=== PATIENT | female | born 1960 | race Caucasian/White ===

== ENCOUNTER 2017-09-04 16:08 | Emergency (ER) | payer MEDICARE, MEDICAID ==
[~2017-09-04] VITALS: Ht 167.6 cm; Wt 77.0 kg
[~2017-09-04 16:08] MED LIST: ALBU6.7H INH; ANTI10DR6 EACH EAR; BENZ1LOZ30; BIOT1TAB8 PO; CHOL100010 PO; EST1T PO; HYDR2TAB28 PO; LEVO100T46 PO; LIOT25TA6 PO; METH4TAB3 PO; ONDA4TAB6 PO; PHEN30SP9 PO; PRED10TA PO; PROM25TA14 PO; PROP10TA10 PO; PROP60TA19 PO; PROTANDUM; RIVA20TA PO; VITA200T6 PO
[2017-09-04 16:14] VITALS: BP 115/95
== END 2017-09-04 16:41 | disposition home or self-care (01) ==
LOC: ER 16:09
DX: J20.9 Acute bronchitis, unspecified (principal); I10 Essential (primary) hypertension; I25.2 Old myocardial infarction; E11.9 Type 2 diabetes mellitus without complications; G89.29 Other chronic pain; Z90.710 Acquired absence of both cervix and uterus; Z88.5 Allergy status to narcotic agent; Z88.1 Allergy status to other antibiotic agents; Z79.899 Other long term (current) drug therapy
CPT/HCPCS: 93005; 99283

== ENCOUNTER 2018-01-26 13:37 | Emergency (ER) | payer MEDICARE, MEDICAID ==
[~2018-01-26] VITALS: Ht 167.6 cm; Wt 77.3 kg
[2018-01-26 14:12] LABS: BASOPHILS # (AUTO) 0.1 X10'3 (0-0.2); BASOPHILS % (AUTO) 0.9 % (0-1); EOSINOPHILS # (AUTO) 0.2 X10'3 (0-0.9); EOSINOPHILS % (AUTO) 2.9 % (0-6); HEMATOCRIT 42.1 % (35.0-45.0); HEMOGLOBIN 13.8 g/dl (12.0-16.0); LYMPHOCYTES # (AUTO) 2.3 X10'3 (1.1-4.8); LYMPHOCYTES % (AUTO) 30.8 % (21-51); MEAN CORPUSCULAR HEMOGLOBIN 27.1 PG (27.0-31.0); MEAN CORPUSCULAR HGB CONC 32.8 % (33.0-36.5); MEAN CORPUSCULAR VOLUME 82.6 FL (78-98); MEAN PLATELET VOLUME 7.5 FL (7.4-10.4); MONOCYTES # (AUTO) 0.5 X10'3 (0-0.9); MONOCYTES % (AUTO) 6.7 % (2-12); NEUTROPHILS # (AUTO) 4.5 X10'3 (1.8-7.7); NEUTROPHILS % (AUTO) 58.7 % (42-75); PLATELET COUNT 319 X10'3 (140-440); RED BLOOD COUNT 5.09 X10'6 (4.20-5.60); RED CELL DISTRIBUTION WIDTH 13.4 % (11.5-14.5); WHITE BLOOD COUNT 7.6 X10'3 (4.5-11.0)
[2018-01-26 14:22] LABS: INR 1.1 INR; PARTIAL THROMBOPLASTIN TIME 28 SECONDS (22-32); PROTHROMBIN TIME 11.1 SECONDS (9.0-12.0)
[2018-01-26 14:27] LABS: ALANINE AMINOTRANSFERASE 28 U/L (12-78); ALBUMIN 4.1 G/DL (3.4-5.0); ALKALINE PHOSPHATASE 110 IU/L (46-116); ANION GAP 8 (8-16); ASPARTATE AMINO TRANSFERASE 22 U/L (10-37); BILIRUBIN,TOTAL 0.4 MG/DL (0.1-1.0); BLOOD UREA NITROGEN 13 MG/DL (7-18); BUN/CREATININE RATIO 15.1 (6.6-38.0); CALCIUM 9.8 MG/DL (8.5-10.1); CHLORIDE 102 MMOL/L (99-107); CREATININE 0.86 MG/DL (0.40-0.90); GLUCOSE 103 MG/DL (70-104); SODIUM 138 MMOL/L (135-145); TOTAL CARBON DIOXIDE 27.7 MMOL/L (24-32); TOTAL PROTEIN 8.1 G/DL (6.4-8.2); eGFR 68 ML/MIN
[2018-01-26 15:05] VITALS: BP 141/80
[2018-01-26] MEDS ORDERED: mag hydrox/Alum hydrox/simeth 30ml oral suspension PO ONE (15:50)
[2018-01-26] MEDS ORDERED: LIDOcaine Viscous 15ml cup PO ONE (15:50)
== END 2018-01-26 16:19 | disposition home or self-care (01) ==
LOC: ER 13:38
DX: R07.89 Other chest pain (principal); K21.9 Gastro-esophageal reflux disease without esophagitis; F41.9 Anxiety disorder, unspecified; I10 Essential (primary) hypertension; I25.2 Old myocardial infarction; E11.9 Type 2 diabetes mellitus without complications; M19.90 Unspecified osteoarthritis, unspecified site; G89.29 Other chronic pain; Z90.710 Acquired absence of both cervix and uterus; Z98.890 Other specified postprocedural states; Z86.711 Personal history of pulmonary embolism; Z88.5 Allergy status to narcotic agent; Z88.6 Allergy status to analgesic agent; Z88.1 Allergy status to other antibiotic agents; Z79.899 Other long term (current) drug therapy
CPT/HCPCS: 36415; 71045; 80053; 84484; 85025; 85379; 85610; 85730; 93005; 99285

== ENCOUNTER 2018-03-13 17:25 | Emergency (ER) | payer MEDICARE, MEDICAID ==
[~2018-03-13] VITALS: Ht 167.6 cm; Wt 78.8 kg
[2018-03-13 17:35] VITALS: BP 144/73
== END 2018-03-13 19:29 | disposition home or self-care (01) ==
LOC: ER 18:38
DX: S93.401A Sprain of unspecified ligament of right ankle, initial encounter (principal); I10 Essential (primary) hypertension; E11.9 Type 2 diabetes mellitus without complications; G89.29 Other chronic pain; Z90.710 Acquired absence of both cervix and uterus; Z88.5 Allergy status to narcotic agent; Z88.1 Allergy status to other antibiotic agents; Z88.8 Allergy status to other drugs, medicaments and biological substances; Z79.899 Other long term (current) drug therapy; W19.XXXA Unspecified fall, initial encounter; Y93.89 Activity, other specified; Y92.090 Kitchen in other non-institutional residence as the place of occurrence of the external cause; Y99.8 Other external cause status
CPT/HCPCS: 73630; 99284

== ENCOUNTER 2019-04-25 14:54 | Emergency (ER) | payer MEDICARE, MEDICAID ==
[~2019-04-25] VITALS: Ht 167.6 cm; Wt 80.4 kg
[~2019-04-25 14:54] MED LIST changes: -ALBU6.7H INH; +ALBU6.7H9 INH
[2019-04-25 14:57] VITALS: BP 176/97
[2019-04-25] MEDS ORDERED: orphenadrine citrate 60mg/2ml inj. IM ONE (16:15)
[2019-04-25] MEDS ORDERED: METH-360 PO (16:46)
== END 2019-04-25 16:58 | disposition home or self-care (01) ==
LOC: ER 14:55
DX: S16.1XXA Strain of muscle, fascia and tendon at neck level, initial encounter (principal); G89.29 Other chronic pain; I10 Essential (primary) hypertension; I25.2 Old myocardial infarction; E11.9 Type 2 diabetes mellitus without complications; M19.90 Unspecified osteoarthritis, unspecified site; F10.99 Alcohol use, unspecified with unspecified alcohol-induced disorder; Z90.710 Acquired absence of both cervix and uterus; Z98.890 Other specified postprocedural states; Z86.711 Personal history of pulmonary embolism; Z88.5 Allergy status to narcotic agent; Z88.8 Allergy status to other drugs, medicaments and biological substances; Z79.899 Other long term (current) drug therapy; X50.1XXA Overexertion from prolonged static or awkward postures, initial encounter; Y93.89 Activity, other specified; Y92.89 Other specified places as the place of occurrence of the external cause; Y99.8 Other external cause status; Y90.9 Presence of alcohol in blood, level not specified
CPT/HCPCS: 72040; 96372; 99283; J2360

== ENCOUNTER 2019-07-31 12:17 | Emergency (ER) | payer MEDICARE, MEDICAID ==
[~2019-07-31] VITALS: Ht 167.6 cm; Wt 81.8 kg
[~2019-07-31 12:17] MED LIST changes: +METH-360 PO
[2019-07-31 12:34] VITALS: BP 125/68
[2019-07-31] MEDS ORDERED: LEVO500T2 PO (15:30)
[2019-07-31] MEDS ORDERED: METH4TAB81 PO (15:30)
[2019-07-31] MEDS ORDERED: ALBU6.7H9 INH (15:30)
== END 2019-07-31 15:39 | disposition home or self-care (01) ==
LOC: ER 12:17
DX: J20.9 Acute bronchitis, unspecified (principal); I10 Essential (primary) hypertension; I25.2 Old myocardial infarction; E11.9 Type 2 diabetes mellitus without complications; M19.90 Unspecified osteoarthritis, unspecified site; G89.29 Other chronic pain; Z86.711 Personal history of pulmonary embolism; Z98.890 Other specified postprocedural states; Z90.710 Acquired absence of both cervix and uterus; Z88.5 Allergy status to narcotic agent; Z88.1 Allergy status to other antibiotic agents; Z79.899 Other long term (current) drug therapy
CPT/HCPCS: 93005; 99283

== ENCOUNTER 2021-03-02 02:31 | Emergency (ER) | payer MEDICARE, MEDICAID ==
[~2021-03-02] VITALS: Ht 167.6 cm; Wt 81.8 kg
[~2021-03-02 02:31] MED LIST changes: +METH4TAB81 PO
[2021-03-02] MEDS ORDERED: HYDROcodone/acetaminophen 5mg/325mg tablet PO ONE (03:10)
[2021-03-02] MEDS ORDERED: ondansetron 4mg rapidly disintigrating tab PO ONE ×2 (03:10→03:20)
[2021-03-02] MEDS ORDERED: ONDA4TAB6 PO (03:20)
[2021-03-02] MEDS ORDERED: HYDR-3965 PO (03:20)
[2021-03-02 04:08] VITALS: BP 138/91
== END 2021-03-02 03:36 | disposition home or self-care (01) ==
LOC: ER 02:31
DX: M25.462 Effusion, left knee (principal); M25.561 Pain in right knee; I10 Essential (primary) hypertension; I25.2 Old myocardial infarction; E11.9 Type 2 diabetes mellitus without complications; M19.90 Unspecified osteoarthritis, unspecified site; G89.29 Other chronic pain; Z87.01 Personal history of pneumonia (recurrent); Z90.710 Acquired absence of both cervix and uterus; Z72.89 Other problems related to lifestyle; Z79.899 Other long term (current) drug therapy; Z88.8 Allergy status to other drugs, medicaments and biological substances
CPT/HCPCS: 29515; 73564; 99283; 99284

== ENCOUNTER 2021-03-06 21:09 | Emergency (ER) | payer MEDICARE, MEDICAID ==
[~2021-03-06] VITALS: Ht 167.6 cm; Wt 74.7 kg
[~2021-03-06 21:09] MED LIST changes: +HYDR-3965 PO
[2021-03-06 21:42] VITALS: BP 128/58
== END 2021-03-07 00:59 | disposition home or self-care (01) ==
LOC: ER 21:10
DX: M25.569 Pain in unspecified knee (principal); Z53.21 Procedure and treatment not carried out due to patient leaving prior to being seen by health care provider
CPT/HCPCS: 99281

== ENCOUNTER 2022-05-15 17:33 | Emergency (ER) | payer MEDICARE, MEDICAID ==
[~2022-05-15] VITALS: Ht 167.6 cm; Wt 77.3 kg
[~2022-05-15 17:33] MED LIST changes: +ALBU6.7H14 INH; -ALBU6.7H9 INH; -HYDR-3965 PO
[2022-05-15 18:59] LABS: CLARITY,URINE SLIGHTLY CLOUDY (Clear); COLOR,URINE YELLOW (Yellow); GLUCOSE, URINE NEGATIVE (Neg); KETONES,URINE NEGATIVE (Neg); LEUKOCYTE ESTERASE ,URINE NEGATIVE (Neg); NITRITES, URINE NEGATIVE (Neg); OCCULT BLOOD,URINE LARGE (Neg); PH,URINE 5.5 (4.8-8.0); PROTEIN,URINE TRACE mg/dl (Neg); UROBILINOGEN,URINE 0.2 E.U/dL (0.2-1.0)
[2022-05-15 19:00] LABS: UA COLLECTION TYPE VOIDED
[2022-05-15 19:11] LABS: BASOPHILS % (AUTO) 0.5 % (0-1); EOSINOPHILS # (AUTO) 0.3 X10'3 (0-0.9); EOSINOPHILS % (AUTO) 3.9 % (0-6); HEMATOCRIT 34.9 % (35.0-45.0); HEMOGLOBIN 11.4 g/dl (12.0-16.0); LYMPHOCYTES % (AUTO) 24.8 % (21-51); MEAN CORPUSCULAR HEMOGLOBIN 27.4 PG (27.0-31.0); MEAN CORPUSCULAR HGB CONC 32.7 g/dL (33.0-36.5); MEAN CORPUSCULAR VOLUME 83.8 FL (78-98); MEAN PLATELET VOLUME 7.4 FL (7.4-10.4); MONOCYTES # (AUTO) 0.8 X10'3 (0-0.9); MONOCYTES % (AUTO) 10.3 % (2-12); NEUTROPHILS # (AUTO) 4.9 X10'3 (1.8-7.7); NEUTROPHILS % (AUTO) 60.5 % (42-75); PLATELET COUNT 263 X10'3 (140-440); RED BLOOD COUNT 4.16 X10'6 (4.20-5.60); RED CELL DISTRIBUTION WIDTH 13.5 % (11.5-14.5); WHITE BLOOD COUNT 8.2 X10'3 (4.5-11.0)
[2022-05-15 19:17] LABS: BACTERIA,URINE NONE SEEN /HPF (Neg); MUCUS STRANDS NONE SEEN /LPF (Neg); SQUAMOUS EPITHELIAL CELL,UR FEW /LPF (FEW); WBC,URINE 0-4 /HPF (0-4)
[2022-05-15 19:18] LABS: RBC,URINE TNTC /HPF (0-2); YEAST FEW /HPF (NEGATIVE)
[2022-05-15 19:28] LABS: ALANINE AMINOTRANSFERASE 35 U/L (12-78); ALBUMIN/GLOBULIN RATIO 1.1 (1.1-1.5); ALKALINE PHOSPHATASE 72 IU/L (46-116); ANION GAP 9 (8-16); ASPARTATE AMINO TRANSFERASE 27 U/L (10-37); BILIRUBIN,TOTAL 0.5 MG/DL (0.1-1.0); BLOOD UREA NITROGEN 23 MG/DL (7-18); BUN/CREATININE RATIO 17.8 (6.6-38.0); CALCIUM 9.5 MG/DL (8.5-10.1); CHLORIDE 99 MMOL/L (99-107); CREATININE 1.29 MG/DL (0.40-0.90); GLUCOSE 98 MG/DL (70-104); LIPASE 150 U/L (73-393); POTASSIUM 3.8 MMOL/L (3.5-5.1); SODIUM 135 MMOL/L (135-145); TOTAL CARBON DIOXIDE 27.1 MMOL/L (24-32); TOTAL PROTEIN 7.8 G/DL (6.4-8.2); eGFR 42 ML/MIN
[2022-05-15] MEDS ORDERED: normal saline 1000ml 1,000 ML IV ONE (23:15)
[2022-05-15] MEDS ORDERED: acetaminophen 325mg tablet PO ONE (23:15)
[2022-05-15] MEDS ORDERED: ondansetron/PF 4mg/2ml inj IV ONE (23:15)
[2022-05-15] MEDS ORDERED: pantoprazole 40mg IV 80 MG in normal saline 100ml IV soln 100 ML IV ONE (23:15)
[2022-05-15] MEDS: pantoprazole 40MG/NS 100ML BAG 100 ML IV SCH (23:34)
[2022-05-16] MEDS ORDERED: iohexol 300mg/ml 100ml inj. ONE (00:14)
[2022-05-16] MEDS: pantoprazole 40MG/NS 100ML BAG 100 ML IV SCH ×2 (00:56→02:34)
[2022-05-16] MEDS: diatr meglu/diatrizoate 30ml oral sol.-(3 dose) bottle PO SCH ×3 (02:17→03:58)
[2022-05-16 09:16] VITALS: BP 135/87
== END 2022-05-16 09:18 | disposition home or self-care (01) ==
LOC: ER 17:35
DX: R31.9 Hematuria, unspecified (principal); R10.84 Generalized abdominal pain; I10 Essential (primary) hypertension; J44.9 Chronic obstructive pulmonary disease, unspecified; E11.9 Type 2 diabetes mellitus without complications; M19.90 Unspecified osteoarthritis, unspecified site; G89.29 Other chronic pain; M54.50 Low back pain, unspecified; Z88.5 Allergy status to narcotic agent; Z88.8 Allergy status to other drugs, medicaments and biological substances; Z91.041 Radiographic dye allergy status; Z90.710 Acquired absence of both cervix and uterus
CPT/HCPCS: 36415; 74177; 80053; 81001; 83690; 85025; 96365; 96366; 96375; 99285; C9113; J2405; J3490; J7030; Q9963; Q9967

== ENCOUNTER 2022-11-15 16:02 | Emergency (ER) | payer MEDICARE, MEDICAID ==
[~2022-11-15] VITALS: Ht 167.6 cm; Wt 81.8 kg
[2022-11-15 16:11] VITALS: BP 177/92
== END 2022-11-15 17:29 | disposition home or self-care (01) ==
LOC: ER 16:06
DX: S61.012A Laceration without foreign body of left thumb without damage to nail, initial encounter (principal); I11.9 Hypertensive heart disease without heart failure; J44.9 Chronic obstructive pulmonary disease, unspecified; E11.9 Type 2 diabetes mellitus without complications; Z90.49 Acquired absence of other specified parts of digestive tract; Z88.5 Allergy status to narcotic agent; Z88.1 Allergy status to other antibiotic agents; Z79.899 Other long term (current) drug therapy; Z79.1 Long term (current) use of non-steroidal anti-inflammatories (NSAID); Z79.2 Long term (current) use of antibiotics; X58.XXXA Exposure to other specified factors, initial encounter; Y93.89 Activity, other specified; Y92.89 Other specified places as the place of occurrence of the external cause; Y99.8 Other external cause status
CPT/HCPCS: 12001; 99282

== ENCOUNTER 2023-02-13 16:29 | Emergency (ER) | payer MEDICARE, MEDICAID ==
[~2023-02-13] VITALS: Ht 167.6 cm; Wt 77.3 kg
[2023-02-13 18:27] VITALS: BP 169/93; PULSE 58; RESP 16; TEMP 97.5; O2SAT 100
== END 2023-02-13 19:58 | disposition home or self-care (01) ==
LOC: ER 16:29
DX: S90.31XA Contusion of right foot, initial encounter (principal); I10 Essential (primary) hypertension; J44.9 Chronic obstructive pulmonary disease, unspecified; E11.9 Type 2 diabetes mellitus without complications; M19.90 Unspecified osteoarthritis, unspecified site; Z88.5 Allergy status to narcotic agent; Z88.8 Allergy status to other drugs, medicaments and biological substances; Z91.041 Radiographic dye allergy status; Z79.899 Other long term (current) drug therapy; Z90.710 Acquired absence of both cervix and uterus; X58.XXXA Exposure to other specified factors, initial encounter; Y93.89 Activity, other specified; Y92.89 Other specified places as the place of occurrence of the external cause; Y99.8 Other external cause status
CPT/HCPCS: 73630; 99283; L4360

== ENCOUNTER 2023-04-28 16:34 | Inpatient (IN) | payer MEDICARE, MEDICAID ==
[~2023-04-28] VITALS: Ht 167.6 cm; Wt 74.4 kg
[2023-04-28 16:59] LABS: BASOPHILS # (AUTO) 0.1 X10'3 (0-0.2); BASOPHILS % (AUTO) 1.1 % (0-1); EOSINOPHILS # (AUTO) 0.2 X10'3 (0-0.9); EOSINOPHILS % (AUTO) 3.6 % (0-6); HEMATOCRIT 36.8 % (35.0-45.0); HEMOGLOBIN 12.2 g/dl (12.0-16.0); LYMPHOCYTES # (AUTO) 1.7 X10'3 (1.1-4.8); LYMPHOCYTES % (AUTO) 27.1 % (21-51); MEAN CORPUSCULAR HEMOGLOBIN 28.6 PG (27.0-31.0); MEAN CORPUSCULAR HGB CONC 33.1 g/dL (33.0-36.5); MEAN CORPUSCULAR VOLUME 86.6 FL (78-98); MEAN PLATELET VOLUME 7.1 FL (7.4-10.4); MONOCYTES # (AUTO) 0.8 X10'3 (0-0.9); NEUTROPHILS # (AUTO) 3.6 X10'3 (1.8-7.7); NEUTROPHILS % (AUTO) 56.2 % (42-75); PLATELET COUNT 325 X10'3 (140-440); RED BLOOD COUNT 4.25 X10'6 (4.20-5.60); RED CELL DISTRIBUTION WIDTH 14.6 % (11.5-14.5); WHITE BLOOD COUNT 6.4 X10'3 (4.5-11.0)
[2023-04-28 17:18] LABS: ALANINE AMINOTRANSFERASE 21 U/L (12-78); ALBUMIN 4.2 G/DL (3.4-5.0); ALBUMIN/GLOBULIN RATIO 1.4 (1.1-1.5); ALKALINE PHOSPHATASE 51 IU/L (46-116); ANION GAP 9 (8-16); ASPARTATE AMINO TRANSFERASE 23 U/L (10-37); BILIRUBIN,TOTAL 0.5 MG/DL (0.1-1.0); BLOOD UREA NITROGEN 20 MG/DL (7-18); BUN/CREATININE RATIO 16.9 (10.0-20.0); CALCIUM 9.1 MG/DL (8.5-10.1); CHLORIDE 102 MMOL/L (99-107); CREATININE 1.18 MG/DL (0.40-0.90); GLUCOSE 86 MG/DL (70-104); POTASSIUM 4.2 MMOL/L (3.5-5.1); SODIUM 136 MMOL/L (135-145); TOTAL CARBON DIOXIDE 24.7 MMOL/L (24-32); TOTAL PROTEIN 7.1 G/DL (6.4-8.2); eCRCL 46 ML/MIN; eGFR 46 ML/MIN
[2023-04-28 17:25] LABS: PRO BRAIN NATRIURETIC PEPTIDE 82 PG/ML (0-125)
[2023-04-28 18:26] LABS: APTT 41 SECONDS (22-32); INR 1.4 INR
[2023-04-28] MEDS ORDERED: magnesium hydroxide 30ml (MOM) UD suspension PO PRN (20:05)
[2023-04-28] MEDS ORDERED: mag hydrox/Alum hydrox/simeth 30ml oral suspension PO PRN (20:05)
[2023-04-28] MEDS ORDERED: morphine 2 MG/ML inj. syringe IV PRN (20:05)
[2023-04-28] MEDS ORDERED: acetaminophen 325mg tablet PO PRN ×2 (20:05)
[2023-04-28 20:28] LABS: PRO BRAIN NATRIURETIC PEPTIDE 91 PG/ML (0-125)
--- NOTE | 2023-04-28 20:29 | NUR ---
PER MD IBARRA NO INTERROGATION DUE AT THIS TIME.
--- NOTE | 2023-04-29 01:31 | NUR ---
ATTEMPTED TO CALL REPORT TO PCU. RN WHO ANSWERED STATED THAT ROMAN RN TO RECIEVE REPORT, WAS BUSY. I COMMUNICATED THAT I WOULD CALL BACK IN 5 MINUTES, INDIVIDUAL WHO ANSWERED STATED THAT WOULD BE GOOD.
--- NOTE | 2023-04-29 02:35 | NUR ---
Pt admitted from ER for dizziness an chest pressure d/t pacemaker wire malfunctioning. Pt transported via gurney and ambulated to bed. Pt is A+Ox4, ad olamide activity, HH diet. Pt had pacemaker placed 5 days ago. site CDI with steri-strips, skin CDI. PIV 22G to the left hand saline locked. VSS.
[2023-04-29 02:50] VITALS: BP 153/69; PULSE 66; RESP 20; TEMP 97.6; O2SAT 98
[2023-04-29] MEDS: morphine 2 MG/ML inj. syringe IV PRN ×3 (03:35→14:44)
[2023-04-29] MEDS: ondansetron/PF 4mg/2ml inj IV PRN ×2 (03:35→09:51)
[2023-04-29 06:00] VITALS: BP 121/68; PULSE 62; RESP 14; TEMP 97.8; O2SAT 98
[2023-04-29] MEDS ORDERED: EZET10TA48 PO (06:04)
[2023-04-29] MEDS ORDERED: LISI5TAB22 PO (06:04)
[2023-04-29] MEDS ORDERED: INDLA60C PO (06:04)
[2023-04-29] MEDS ORDERED: BEMP180T PO (06:04)
[2023-04-29] MEDS ORDERED: ESCI20TA39 PO (06:04)
--- NOTE | 2023-04-29 06:12 | NUR ---
Problems reprioritized. Patient report given, questions answered & plan of care reviewed with Lorie VALDES. Pt stable at shift change.
--- NOTE | 2023-04-29 06:30 | NUR ---
Patient in room PCU 3011. I have received report from Amber VALDES and had the opportunity to ask questions and assume patient care.
[2023-04-29 07:05] LABS: BASOPHILS # (AUTO) 0.1 X10'3 (0-0.2); EOSINOPHILS # (AUTO) 0.2 X10'3 (0-0.9); EOSINOPHILS % (AUTO) 3.9 % (0-6); HEMATOCRIT 36.6 % (35.0-45.0); HEMOGLOBIN 12.1 g/dl (12.0-16.0); LYMPHOCYTES # (AUTO) 1.8 X10'3 (1.1-4.8); MEAN CORPUSCULAR VOLUME 87.9 FL (78-98); MONOCYTES # (AUTO) 0.8 X10'3 (0-0.9); MONOCYTES % (AUTO) 14.3 % (2-12); NEUTROPHILS # (AUTO) 2.7 X10'3 (1.8-7.7); NEUTROPHILS % (AUTO) 48.8 % (42-75); PLATELET COUNT 267 X10'3 (140-440); RED BLOOD COUNT 4.17 X10'6 (4.20-5.60); RED CELL DISTRIBUTION WIDTH 14.4 % (11.5-14.5); WHITE BLOOD COUNT 5.6 X10'3 (4.5-11.0)
[2023-04-29 07:41] LABS: ALBUMIN 3.7 G/DL (3.4-5.0); ANION GAP 10 (8-16); BLOOD UREA NITROGEN 24 MG/DL (7-18); BUN/CREATININE RATIO 21.4 (10.0-20.0); CALCIUM 8.9 MG/DL (8.5-10.1); CHLORIDE 103 MMOL/L (99-107); CREATININE 1.12 MG/DL (0.40-0.90); GLUCOSE 91 MG/DL (70-104); SODIUM 136 MMOL/L (135-145); TOTAL CARBON DIOXIDE 23.1 MMOL/L (24-32); eCRCL 49 ML/MIN; eGFR 49 ML/MIN
[2023-04-29 08:00] VITALS: BP_SYST 112; BP_SYST 115; BP_SYST 122; BP_DIAS 64; BP_DIAS 71; BP_DIAS 75; PULSE 60
[2023-04-29] MEDS ORDERED: cephalexin 500mg capsule PO SCH (08:00)
[2023-04-29] MEDS ORDERED: docusate sod 100mg capsule PO SCH (08:00)
[2023-04-29] MEDS ORDERED: levoTHYROXINE 100mcg tablet PO ONE (08:50)
[2023-04-29] MEDS ORDERED: ezetimibe 10mg tablet PO SCH (09:00)
[2023-04-29 09:51] VITALS: BP 110/63
[2023-04-29] MEDS ORDERED: lisinopril 5mg tablet PO SCH (10:00)
[2023-04-29 11:05] VITALS: BP 111/61; PULSE 69; RESP 18; TEMP 97.5; O2SAT 94
--- NOTE | 2023-04-29 12:47 | NUR ---
Message: [id number]. Vandana Haro. Is it okay for patient to eat lunch? Not sure if she's been evaluated by cardiology yet. Thank you. Lorie [phone] Custom Responses: promotional table spacer Transaction number: [id number]
--- NOTE | 2023-04-29 15:39 | NUR ---
Pt D/C per hospitalist. PIV removed, cannula intact. Tele discontinued. All belongings taken home by patient. Reviewed discharge instructions with patient and patient's spouse, all questions and concerns addressed. Pt was wheeled down to lobby by staff nuclear weapons officer and taken home by patient's spouse. Pt was stable and appropriate for discharge.
[2023-04-30] MEDS ORDERED: levoTHYROXINE 100mcg tablet PO SCH (07:00)
[2023-04-30] MEDS ORDERED: ESCITALOPRAM 10 mg tablet 10 MG TABLET PO SCH (08:00)
[2023-04-30] MEDS ORDERED: BEMPEDOIC ACID 180 MG PO SCH (08:00)
[2023-04-30] MEDS ORDERED: rivaroxaban 20mg tablet PO SCH (08:00)
== END 2023-04-29 15:39 | disposition home or self-care (01) | DRG 310 ==
LOC: ER 16:35 → ED HOLD 20:05 → PCU 3S 04-29 02:05
PROVIDERS: ADMIT Internal Medicine; ATTEND Family Medicine
DX: T82.120A Displacement of cardiac electrode, initial encounter (principal); J44.9 Chronic obstructive pulmonary disease, unspecified; E03.9 Hypothyroidism, unspecified; G89.29 Other chronic pain; M54.9 Dorsalgia, unspecified; Y83.8 Other surgical procedures as the cause of abnormal reaction of the patient, or of later complication, without mention of misadventure at the time of the procedure; E11.9 Type 2 diabetes mellitus without complications; I10 Essential (primary) hypertension; Z90.710 Acquired absence of both cervix and uterus; Z86.711 Personal history of pulmonary embolism; Z95.0 Presence of cardiac pacemaker; Z88.5 Allergy status to narcotic agent; Z88.8 Allergy status to other drugs, medicaments and biological substances; Z79.01 Long term (current) use of anticoagulants; Z79.899 Other long term (current) drug therapy; Y92.89 Other specified places as the place of occurrence of the external cause; I25.2 Old myocardial infarction
CPT/HCPCS: 36415; 70450; 71045; 80048; 80053; 83880; 84484; 85025; 85610; 85730; 87081; 99285; A4565; G0378; J2270; J2405

== ENCOUNTER 2024-01-17 13:44 | Emergency (ER) | payer MEDICARE, MEDICAID ==
[~2024-01-17] VITALS: Ht 167.6 cm; Wt 75.7 kg
[~2024-01-17 13:44] MED LIST changes: -ALBU6.7H14 INH; -ANTI10DR6 EACH EAR; +BEMP180T PO; -BENZ1LOZ30; -BIOT1TAB8 PO; -CHOL100010 PO; +ESCI20TA39 PO; -EST1T PO; +EZET10TA48 PO; -HYDR2TAB28 PO; +INDLA60C PO; -LIOT25TA6 PO; +LISI5TAB22 PO; -METH-360 PO; -METH4TAB3 PO; -METH4TAB81 PO; -ONDA4TAB6 PO; -PHEN30SP9 PO; -PRED10TA PO; -PROM25TA14 PO; -PROP10TA10 PO; -PROP60TA19 PO; -PROTANDUM; -VITA200T6 PO
[2024-01-17 13:56] VITALS: TEMP 99.9
[2024-01-17 16:38] LABS: STREP A SCREEN POSITIVE (Neg)
[2024-01-17] MEDS: dexamethasone sod phosphate 10mg/ml inj IM STA (17:21)
[2024-01-17] MEDS: acetaminophen 325mg/10.15ml oral unit dose solution PO ONE (17:22)
[2024-01-17] MEDS ORDERED: penicillin G benzathine 1.2 million unit/2ml syringe IM ONE (18:00)
[2024-01-17] MEDS ORDERED: ACET160S PO (18:26)
[2024-01-17] MEDS: PENICILLIN G BENZATHINE 2,400,000 UNIT/4 ML SYRINGE IM ONE (18:37)
[2024-01-17] MEDS: MESSAGE TO NURSING IM ONE (18:38)
[2024-01-17 19:01] VITALS: BP 121/63; PULSE 78; RESP 18; O2SAT 98
== END 2024-01-17 19:05 | disposition home or self-care (01) ==
LOC: ER 13:45
DX: J02.0 Streptococcal pharyngitis (principal); I10 Essential (primary) hypertension; I25.2 Old myocardial infarction; J44.9 Chronic obstructive pulmonary disease, unspecified; E11.9 Type 2 diabetes mellitus without complications; E07.9 Disorder of thyroid, unspecified; M19.90 Unspecified osteoarthritis, unspecified site; G89.29 Other chronic pain; M54.9 Dorsalgia, unspecified; Z90.710 Acquired absence of both cervix and uterus; Z98.890 Other specified postprocedural states; Z95.0 Presence of cardiac pacemaker; Z86.711 Personal history of pulmonary embolism; Z20.822 Contact with and (suspected) exposure to COVID-19; Z88.8 Allergy status to other drugs, medicaments and biological substances; Z88.1 Allergy status to other antibiotic agents; Z79.899 Other long term (current) drug therapy; Z79.1 Long term (current) use of non-steroidal anti-inflammatories (NSAID); Z72.89 Other problems related to lifestyle
CPT/HCPCS: 36415; 87811; 87880; 96372; 99284; J0561; J1100

== ENCOUNTER 2024-11-13 11:19 | Emergency (ER) | payer MEDICARE, MEDICAID ==
[~2024-11-13] VITALS: Ht 167.6 cm; Wt 76.0 kg
[2024-11-13 11:43] VITALS: BP 107/84; PULSE 66; RESP 18; O2SAT 98
--- NOTE | 2024-11-13 12:11 | RADIOLOGY REPORT ---
DI WRIST, COMPLETE (3VW MIN), INDICATION: WRIST PAIN TECHNICAL DATA: Frontal , oblique, and lateral views were obtained of the right wrist. COMPARISON: DI FOOT, COMPLETE (3VW MIN) on DOS: 02/13/23, FOOT, COMPLETE (3VW MIN) on DOS: 03/13/18 FINDINGS: Possible triquetral fracture on the lateral view. Joint spaces are maintained. Alignment is anatomic. Ulnar variance is positive. Soft tissues are within normal limits. IMPRESSION: Possible triquetral fracture on the lateral view.
--- NOTE | 2024-11-13 12:50 | Physician Documentation ---
History of Present Illness ~ Chief Complaint: Wrist pain Stated Complaint: FALL/WRIST PAIN Time Seen by MD: 12:19 Primary Medical Doctor: [facility] HPI 64-year-old female presents with a complaint of and left wrist pain. after falling yesterday. Stool had fallen over and she fell onto it with her right wrist injuring herself. Any head strike. Reports pain with range of motion of the right wrist Day of Onset: Nov 13, 2024 Tetanus within 5 years: Yes (NOVEMBER 2019) Medication Reconciliation Allergies: Coded Allergies: codeine (Unverified Allergy, Unknown, 11/13/24) diphenhydramine HCl (Verified Allergy, Unknown, 11/13/24) erythromycin base (Verified Allergy, Unknown, 11/13/24) hydrocodone (Unverified Allergy, Unknown, ITCHING AND DIZZINESS, 11/13/24) hydrocodone bit (Verified Allergy, Unknown, 11/13/24) prochlorperazine (Verified Allergy, Unknown, 11/13/24) prochlorperazine edisylate (Verified Allergy, Unknown, 06/29/16) prochlorperazine maleate (Verified Allergy, Unknown, 06/29/16) Scheduled Bempedoic Acid (Nexletol), 1 TAB PO DAILY, (Reported) Escitalopram Oxalate (Escitalopram Oxalate), 1 TAB PO DAILY, (Reported) Ezetimibe (Ezetimibe), 1 TAB PO DAILY, (Reported) Levothyroxine Sodium* (Levoxyl*), 100 MCG PO DAILY, (Reported) Lisinopril (Lisinopril), 1 TAB PO DAILY, (Reported) Propranolol HCl (Propranolol HCl), 1 CAP PO DAILY, (Reported) Rivaroxaban (Xarelto), 1 TAB PO DAILY, (Reported) Past Medical History Past Medical History: Hypertension, Myocardial Infarction, Mitral Valve Stenosis, COPD, Pulmonary Embolism, Diabetes, Thyroid (unspecified), Arthritis, Chronic Pain, Chronic Back Pain Past Surgical History: abdominal surgery, hysterectomy, orthopedic surgeries, pacemaker, other Alcohol Use: Occasionally Drug Use: none Lives with: Family Lives In: Home Review of Systems All Other Systems at this time: Reviewed and Negative ROS As stated above in the HPI, otherwise all systems are reviewed and negative. Physical Exam Vital Signs: Temperature: 97.5, Heart Rate: 66, Respiratory Rate: 18, BP: 107/84, Pulse Oximetry: 98, Weight: 75.950 Physical Exam General: Alert, no apparent distress. HEENT: PERRL, EOMI, no injection, moist mucous membranes. extremeties: Is notable for or swelling and end developing ecchymosis point tenderness to the lateral aspect of the posterior rest Neurologic: Oriented x4. Psychiatric: Normal mood and affect. Skin: Normal color, warm and dry. No edema, no ecchymosis. Progress Results/Orders Results/Orders Orders - KINGSTON GUADALUPE NP Wrist, Complete (3vw Min) (11/13/24 11:45) Ortho Orders (11/13/24 ) Completed Orders - KINGSTON GUADALUPE NP Wrist, Complete (3vw Min) (11/13/24 11:45) Hydrocodone/Apap 10/325 ([place] 10/325mg (11/13/24 13:25) Vital Signs 11/13/24 11:43 Temp 97.5 Pulse 66 Resp 18 B/P (MAP) 107/84 Pulse Ox 98 Medical Decision Making Findings Interpretation of patient's right rest x-ray there is notable fracture of the triquetrum did place her in a volar wrist splint and advised her to take a Tylenol and ibuprofen for pain and swelling Departure Disposition: 01 HOME / SELF CARE / HOMELESS Impression: Primary Impression: Wrist joint pain Additional Impression: Wrist fracture Condition: Stable Discharge Instructions: Wrist Fracture Treated With Immobilization Additional Instructions: You have a small wrist fracture which required splint placement. Follow up with the primary care to obtain a orthopedic referral if you continue to have troubles. Take ibuprofen and Tylenol Referrals: NO PRIMARY CARE PROVIDER (PCP) Education Educated: Patient Educated regarding: diagnosis Signature Scribe Signature: g Attestation: The note accurately reflects work and decisions made by me.Kingston Hernandez NP 11/13/24 13:32 KINGSTON GUADALUPE NP Nov 13, 2024 12:50
[2024-11-13] MEDS: HYDROcodone/acetaminophen 10/325mg tab PO ONE (13:40)
[2024-11-13 14:28] VITALS: TEMP 97.5
[2024-11-13] MEDS: acetaminophen 325mg tablet PO ONE (14:28)
== END 2024-11-13 14:30 | disposition home or self-care (01) ==
LOC: ER 11:20
DX: S62.101A Fracture of unspecified carpal bone, right wrist, initial encounter for closed fracture (principal); E11.9 Type 2 diabetes mellitus without complications; I10 Essential (primary) hypertension; I25.2 Old myocardial infarction; J44.9 Chronic obstructive pulmonary disease, unspecified; M19.90 Unspecified osteoarthritis, unspecified site; Z88.1 Allergy status to other antibiotic agents; Z86.711 Personal history of pulmonary embolism; Z88.5 Allergy status to narcotic agent; Z88.8 Allergy status to other drugs, medicaments and biological substances; Z90.710 Acquired absence of both cervix and uterus; Z95.0 Presence of cardiac pacemaker; W19.XXXA Unspecified fall, initial encounter; Y93.89 Activity, other specified; Y92.89 Other specified places as the place of occurrence of the external cause; Y99.8 Other external cause status
CPT/HCPCS: 29125; 73110; 99284; A4565; A6449

== ENCOUNTER 2025-03-24 12:19 | Emergency (ER) | payer MEDICARE, MEDICAID ==
[~2025-03-24] VITALS: Ht 167.6 cm; Wt 79.0 kg
[~2025-03-24 12:19] MED LIST changes: -EZET10TA48 PO; +EZET10TA80 PO
--- NOTE | 2025-03-24 12:44 | Physician Documentation ---
History of Present Illness ~ Chief Complaint: Ear Pain Stated Complaint: EAR PAIN Time Seen by MD: 12:29 OK to notify your PCP?: Yes Primary Medical Doctor: [facility] Source: patient Mode of Arrival: POV Exam Limitations: no limitations HPI 64-year-old female presents for bilateral ear pain and headache. She reports that the headache appeared yesterday and she does take atenolol for her blood pressure. She reports of the headache feels like a pressure sensation. She is not take her blood pressure at home on a regular basis but states that it has never been this high. Her left ear has been hurting for the past week and a couple of days ago her right ear started hurting. She denies any drainage out of the ear. She denies any fevers, chest pain, shortness of breath, nausea, vomiting, diarrhea or recent illness. She does have some sinus congestion as well. Medication Reconciliation Allergies: Coded Allergies: baclofen (Verified Allergy, Unknown, hallucinations, 03/24/25) codeine (Unverified Allergy, Unknown, 03/24/25) diphenhydramine HCl (Verified Allergy, Unknown, 03/24/25) erythromycin base (Verified Allergy, Unknown, 03/24/25) hydrocodone (Unverified Allergy, Unknown, ITCHING AND DIZZINESS, 03/24/25) hydrocodone bit (Verified Allergy, Unknown, 03/24/25) prochlorperazine (Verified Allergy, Unknown, 03/24/25) prochlorperazine edisylate (Verified Allergy, Unknown, 06/29/16) prochlorperazine maleate (Verified Allergy, Unknown, 06/29/16) Scheduled Bempedoic Acid (Nexletol), 1 TAB PO DAILY, (Reported) Escitalopram Oxalate (Escitalopram Oxalate), 1 TAB PO DAILY, (Reported) Ezetimibe (Ezetimibe), 1 TAB PO DAILY, (Reported) Levothyroxine Sodium* (Levoxyl*), 100 MCG PO DAILY, (Reported) Lisinopril (Lisinopril), 1 TAB PO DAILY, (Reported) Propranolol HCl (Propranolol HCl), 1 CAP PO DAILY, (Reported) Rivaroxaban (Xarelto), 1 TAB PO DAILY, (Reported) Past Medical History Past Medical History: Hypertension, Myocardial Infarction, Mitral Valve Steno sis, COPD, Pulmonary Embolism, Diabetes, Thyroid (unspecified), Arthritis, Chronic Pain, Chronic Back Pain Past Surgical History: abdominal surgery, hysterectomy, orthopedic surgeries, pacemaker, other Alcohol Use: Occasionally Drug Use: none Lives with: Family Lives In: Home Review of Systems All Other Systems at this time: Reviewed and Negative Physical Exam Vital Signs: RN Vital Signs have been reviewed: Yes, Temperature: 97.0, Source: Temporal, Heart Rate: 69, Respiratory Rate: 18, BP: 199/97, Pulse Oximetry: 98, Weight: 79.000 Oxygen Flow Rate: 0 Pulse Oximetry Reflects: adequate oxygenation Physical Exam General: Alert, no apparent distress. HEENT: PERRL, EOMI, no injection, moist mucous membranes. Bilateral ear canals clear. Bilateral TMs bulging with effusion but no infection. Sinuses nontender. Posterior pharynx clear. Neck: Full range of motion. Respiratory: Lungs clear, no respiratory distress. Chest: No accessory muscle use. Cardiovascular: Regular rate and rhythm, no murmurs. Gastrointestinal: Soft, nontender, nondistended. Bowels sounds present. Extremities: Normal range of motion, no deformity. Neurologic: Oriented x4. Psychiatric: Normal mood and affect. Skin: Normal color, warm and dry. No edema, no ecchymosis. Progress Results/Orders Reviewed/noted all lab results: Yes Results/Orders Completed Orders - RAZIA SANCHEZ Clonidine Tablet (Catapres Tablet) (03/24/25 12:40) Medications Received in ER Medications (Trade) Dose Ordered Sig/Frankie Route PRN Reason Start Time Stop Time Status Last Admin Dose Admin (Catapres tablet) 0.1 mg ONCE ONCE PO 03/24/25 12:40 03/24/25 12:43 DC 03/24/25 12:46 0.1 MG Vital Signs 03/24/25 03/24/25 03/24/25 12:20 12:47 13:28 Temp 97.0 98.9 Pulse 69 77 79 Resp 18 16 16 B/P (MAP) 199/97 162/91 (114) 174/96 Pulse Ox 98 98 99 O2 Flow Rate 0 Medical Decision Making Additional information obtaine: old records Findings She presents with bilateral effusions to her tympanic membrane without any signs of infection. She has also been having sinus congestion. We discussed treat ment with Flonase. She mentions having a pressure headache which could be due to her blood pressure as it was high when she arrived or could be due to the pressure in her ears. She does have hearing changes on the left ear which does appear to be a little bit more bulging than the right. Her repeat blood pressures had come down some with a dose of clonidine. We reports that her headache mainly subsided after the medication administration. I discussed that this once again could be due to her ears or due to blood pressure management. She was given follow up instructions and discharge instructions to follow up with her primary care provider within the next week to talk about blood pressure medication adjustments. Ear Diff. Dx: Considerations: Include: Abrasion, Cerumen impaction, Foreign body, Otitis externa, Barotrauma, Otitis media, Perforation, Tympanic Membrane Injury Eye Diff. Dx: Considerations: Include: Other Nose Diff. Dx: Considerations: Include: Other Tooth Diff. Dx: Considerations: Include: Other Throat Diff Dx: Considerations: Include: Other Departure Disposition: 01 HOME / SELF CARE / HOMELESS Impression: Primary Impression: OME (otitis media with effusion) Additional Impression: Eustachian tube dysfunction Discharge Instructions: Earache, Adult Additional Instructions: As discussed please use the Flonase you already have 1 spray each nostril at bedtime to help decrease the amount of fluid in her ears. As discussed sometimes the excess fluid in the ears can take weeks to fully resolve. Follow up with her primary care provider if this does not resolve as you may need a referral to ENT. Please follow up with the primary care provider regarding her blood pressure as it was elevated on arrival today. Referrals: NO PRIMARY CARE PROVIDER (PCP) Education Educated: Patient Educated regarding: diagnosis, treatment, prognosis, need for follow up Additional Comment Medical Screen Exam This patient recieved a medical screening examination. After reviewing the individual's medical complaints with presenting symptoms and performing an appropriate physical examination, it was determined that no immediate life- threatening emergency medical condition is present. This individual is also not a women having contractions. Signature Scribe Signature: . Attestation: Scribed for Razia Sanchez Biostatistics Teacher by Razia Hernandez NP . 03/24/25 13:50 Parts of this note were created using [employer] voice recognition software program. While efforts were made to correct any mistakes made by this voice recognition software program, nonsensical phrases may remain in this note. In addition, there may be errors and syntax, grammar, content and spelling. RAZIA SANCHEZ [facility] Mar 24, 2025 12:44
[2025-03-24 13:28] VITALS: BP 174/96; PULSE 79; RESP 16; TEMP 98.9; O2SAT 99
== END 2025-03-24 13:29 | disposition home or self-care (01) ==
LOC: ER 12:19
DX: H65.93 Unspecified nonsuppurative otitis media, bilateral (principal); H69.93 Unspecified Eustachian tube disorder, bilateral; E11.9 Type 2 diabetes mellitus without complications; G89.29 Other chronic pain; I10 Essential (primary) hypertension; I25.2 Old myocardial infarction; J44.9 Chronic obstructive pulmonary disease, unspecified; M19.90 Unspecified osteoarthritis, unspecified site; Z86.711 Personal history of pulmonary embolism; Z88.5 Allergy status to narcotic agent; Z88.8 Allergy status to other drugs, medicaments and biological substances; Z90.710 Acquired absence of both cervix and uterus; Z95.0 Presence of cardiac pacemaker; Z79.899 Other long term (current) drug therapy; Z72.89 Other problems related to lifestyle
CPT/HCPCS: 99283